=== PATIENT | male | born 1965 | race Caucasian/White ===

== ENCOUNTER 2024-08-03 05:41 | Day surgery (SDC) | payer BC, SELFPAY ==
[2024-08-03 07:20] VITALS: BMI 35.2
[2024-08-03 07:33] VITALS: BP 150/92
[2024-08-03 07:43] LABS: Glucose - Point of Care 119 mg/dl (70-99)
[2024-08-03 09:40] VITALS: BP 131/84
[2024-08-03 09:55] VITALS: BP 154/89
[2024-08-03 10:10] VITALS: BP 149/93
== END 2024-08-03 10:20 | disposition home or self-care (01) ==
LOC: SDS 05:41
PROVIDERS: ATTENDING PHYSICIAN Internal Medicine Gastroenterology
DX: Z12.11 Encounter for screening for malignant neoplasm of colon (principal); D12.2 Benign neoplasm of ascending colon; K57.30 Diverticulosis of large intestine without perforation or abscess without bleeding; K64.8 Other hemorrhoids; Z86.0101 Personal history of adenomatous and serrated colon polyps; Z98.890 Other specified postprocedural states
CPT/HCPCS: 45385; 88305; 82962

== ENCOUNTER → 2024-10-19 06:56 | Outpatient (REF) | payer BC, SELFPAY ==
--- NOTE | 2024-10-19 08:10 | CARDSERVLU ---
Echocardiogram with Lumason completed after protocol screening completed. Allergies verified.
Patent IV site: __L hand___
IV site flushed with 0.9% NaCl pre and post administration.
Diluted bolus method utilized to enhance visualization of ventricular tomas.
Total volume given: __2.5__ mL
Patient tolerated all procedures well without complications.
== END ==
LOC: RCS 06:56
PROVIDERS: ATTENDING PHYSICIAN Internal Medicine Cardiovascular Disease; FAMILY PHYSICIAN Family Medicine
DX: I50.20 Unspecified systolic (congestive) heart failure (principal)
CPT/HCPCS: 93306; Q9950

== ENCOUNTER 2025-05-30 06:25 | Day surgery (SDC) | payer BC, SELFPAY ==
[2025-05-30 11:58] VITALS: BMI 34.3
[2025-05-30 11:59] VITALS: BP 121/65; BMI 34.3
[2025-05-30 12:29] LABS: Glucose - Point of Care 128 mg/dl (70-99)
[2025-05-30 14:15] VITALS: BP 114/73
[2025-05-30 14:30] VITALS: BP 139/82
[2025-05-30 14:45] VITALS: BP 141/80
== END 2025-05-30 15:03 | disposition home or self-care (01) ==
LOC: SDS 06:25
PROVIDERS: ATTENDING PHYSICIAN Internal Medicine Gastroenterology
DX: Z12.11 Encounter for screening for malignant neoplasm of colon (principal); D12.2 Benign neoplasm of ascending colon; D12.5 Benign neoplasm of sigmoid colon; K57.30 Diverticulosis of large intestine without perforation or abscess without bleeding; K64.8 Other hemorrhoids; Z86.0101 Personal history of adenomatous and serrated colon polyps; Z98.890 Other specified postprocedural states
CPT/HCPCS: 45380; 82962; 88305